=== PATIENT | female | born 1965 | race Caucasian/White ===

== ENCOUNTER 2022-09-11 09:53 | Outpatient (CLI) | payer MEDICARE, OTHER, SELFPAY ==
--- NOTE | 2022-09-11 10:15 | CRLHL7_ITS ---
For Patients: As a result of the Cures Act, medical imaging exams and procedure reports are released immediately into your electronic medical record. You may view this report before your referring provider. If you have questions, please contact your health care provider. BILATERAL SCREENING MAMMOGRAM WITH COMPUTER-AIDED DETECTION AND TOMOSYNTHESIS TECHNIQUE: CC and MLO views were obtained. These mammographic images have been obtained using full-field digital technique. These mammographic images were interpreted with the benefit of computer-aided detection. Breast Tomosynthesis was used in this interpretation. COMPARISON FILM: 03/31/21, 03/29/20, 10/28/18. FINDINGS: There are scattered areas of fibroglandular density IMPRESSION: There is no radiographic evidence for malignancy. ASSESSMENT: BI-RADS Category 1: Negative RECOMMENDATION: Routine screening mammogram in 1 year. A lay language report of this examination will be provided to the patient. Mc Vann M.D. Diagnostic Radiologist [email or web address] JOLLY/isiah / be/Dictated by: Mc Vann MD @ 09/11/2022 11:00:00 AM (Electronically Signed)
== END 2022-09-11 09:54 | disposition home or self-care (01) ==
LOC: MAMMO 10:01
PROVIDERS: PCP Family Medicine; Visit Provider Family Medicine
DX: Z12.31 Encounter for screening mammogram for malignant neoplasm of breast (principal)
CPT/HCPCS: 77063; 77067

== ENCOUNTER 2022-12-18 15:59 | Outpatient (CLI) | payer MEDICARE, SELFPAY ==
[2022-12-18 21:50] LABS: Creatinine Urine 22.1 mg/dL
[2022-12-18 21:54] LABS: Microalbumin Creatinine Ratio 130 mg/g (0-30); Microalbumin Urine 3 mg/dL
== END 2022-12-18 16:00 | disposition home or self-care (01) ==
PROVIDERS: PCP Family Medicine; Visit Provider Family Medicine
DX: E11.40 Type 2 diabetes mellitus with diabetic neuropathy, unspecified (principal); D64.9 Anemia, unspecified; N28.9 Disorder of kidney and ureter, unspecified
CPT/HCPCS: 82043; 82570

== ENCOUNTER 2023-06-24 13:40 | Outpatient (CLI) | payer OTHER, MEDICARE, SELFPAY | END 2023-06-24 13:41 | disposition home or self-care (01) | LOC: NFLDREF 07-02 10:56 | PROVIDERS: PCP Family Medicine; Referring Provider Family Medicine; Visit Provider Family Medicine | DX: N39.0 Urinary tract infection, site not specified (principal); R29.6 Repeated falls; D64.9 Anemia, unspecified; R42 Dizziness and giddiness; N28.9 Disorder of kidney and ureter, unspecified; G43.909 Migraine, unspecified, not intractable, without status migrainosus; G50.0 Trigeminal neuralgia; R06.02 Shortness of breath | CPT/HCPCS: 87086; 87186 ==

== ENCOUNTER 2023-09-12 10:00 | Outpatient (CLI) | payer OTHER, MEDICARE, SELFPAY | END 2023-09-12 10:01 | disposition home or self-care (01) | LOC: NFLDREF 09-18 07:09 | PROVIDERS: PCP Family Medicine; Referring Provider Family Medicine; Visit Provider Family Medicine | DX: Z00.00 Encounter for general adult medical examination without abnormal findings (principal); E11.9 Type 2 diabetes mellitus without complications; N39.0 Urinary tract infection, site not specified; R42 Dizziness and giddiness; N28.9 Disorder of kidney and ureter, unspecified; F41.8 Other specified anxiety disorders; Z79.899 Other long term (current) drug therapy; R80.9 Proteinuria, unspecified; M79.7 Fibromyalgia; M25.50 Pain in unspecified joint; M85.80 Other specified disorders of bone density and structure, unspecified site; E11.40 Type 2 diabetes mellitus with diabetic neuropathy, unspecified; K21.9 Gastro-esophageal reflux disease without esophagitis | CPT/HCPCS: 82043; 82570; 85651 ==

== ENCOUNTER 2023-10-04 14:49 | Outpatient (CLI) | payer OTHER, MEDICARE, SELFPAY ==
--- NOTE | 2023-10-04 15:00 | CRLHL7_ITS ---
For Patients: As a result of the Century Cures Act, medical imaging exams and procedure reports are released immediately into your electronic medical record. You may view this report before your referring provider. If you have questions, please contact your health care provider. BILATERAL SCREENING MAMMOGRAM WITH COMPUTER-AIDED DETECTION AND TOMOSYNTHESIS TECHNIQUE: CC and MLO views were obtained. These mammographic images have been obtained using full-field digital technique. These mammographic images were interpreted with the benefit of computer-aided detection. Breast Tomosynthesis was used in this interpretation. COMPARISON FILM: 09/11/22, 03/31/21, 03/29/20. FINDINGS: There are scattered areas of fibroglandular density IMPRESSION: There is no radiographic evidence for malignancy. ASSESSMENT: BI-RADS Category 2: Benign RECOMMENDATION: Routine screening mammogram in 1 year. A lay language report of this examination will be provided to the patient. Howard Goyal M.D. Diagnostic/Nuclear Medicine Radiologist [email or web address] JAZMYNE/Dictated by: Howard Goyal MD @ 10/07/2023 8:27:00 AM (Electronically Signed)
== END 2023-10-04 14:50 | disposition home or self-care (01) ==
LOC: MAMMO 14:50
PROVIDERS: PCP Family Medicine; Visit Provider Family Medicine
DX: Z12.31 Encounter for screening mammogram for malignant neoplasm of breast (principal)
CPT/HCPCS: 77063; 77067

== ENCOUNTER 2023-10-24 14:51 | Outpatient (CLI) | payer OTHER, MEDICARE, SELFPAY ==
--- NOTE | 2023-10-24 15:00 | CRLHL7_ITS ---
For Patients: As a result of the Century Cures Act, medical imaging exams and procedure reports are released immediately into your electronic medical record. You may view this report before your referring provider. If you have questions, please contact your health care provider. DXA BONE MINERAL DENSITY STUDY Reason for exam: Osteopenia. Current height (in): 68. Weight (lb): 170 Menopause age: 34. Ethnicity: White. 1. Have you had a previous hip or vertebral fracture? No. 2. Have you had any fractures during your adult life which did not result from significant trauma (e.g., auto accident)? Yes. 3. Did either of your parents have a hip fracture? No. 4. Do you smoke? No. 5. Have you ever taken Glucocorticoids? No. 6. Do you have rheumatoid arthritis? No. 7. Do you have secondary osteoporosis? Yes. 8. Do you drink 3 or more alcoholic drinks per day? No. 9. Are you being treated for osteoporosis? No. 10. Have you ever taken any of the following medications: Actonel, Evista, Fosamax, Miacalcin, Reclast, Boniva, Forteo, HRT (i.e., estrogen/hormone therapy), Protelos, Prolia, Vitamin D, Calcium, other ??? please specify. ANSWER: No. 11. Do you have any of the following medical conditions: Anorexia or bulimia, asthma or emphysema, end stage renal disease, hyperparathyroidism, any seizure disorders, cancer, inflammatory bowel diseases, hysterectomy, other ??? please specify. ANSWER: Yes, asthma or emphysema, and hysterectomy. 12. What was your maximum height (inches)? 69. 13. Do you perform weight bearing exercise regularly? No. 14. Do you regularly consume dairy products? No. 15. Do you drink caffeinated beverages? Yes. If female: 16. At what age did your period start? 13. 17. Are you premenopausal? No. 18. How many full-term pregnancies have you had? 2. 19. Have you ever missed your period for more than 6 months in a row (not including or menopause)? No. TECHNIQUE: Bone mineral density study was performed using the [facility]. FINDINGS: The results of the study expressed as bone mineral density (BMD) are as follows: Lumbar spine L1 to L4: BMD: 0.805 g/cm2. T-score: -2.2. Z-score: -0.9 Neck Left: BMD: 0.612 g/cm2. T-score: -2.1. Z-score: -0.9 Right: BMD: 0.609 g/cm2. T-score: -2.2. Z-score: -0.9 Total Left: BMD: 0.718 g/cm2. T-score: -1.8. Z-score: -0.9 Right: BMD: 0.689 g/cm2. T-score: -2.1. Z-score: -1.2 IMPRESSION: Osteopenia. *Comparison exams done prior to 04/2020 were performed on different unit, [facility]. COMPARISON: Compared with scan of 01/05/2019, the bone mineral density has decreased by 10.3 percent at the spine and increased by 2.2 percent at the hip. FRAX 10-year Fracture Risk Major Osteoporotic Fracture: 17% Hip Fracture: 2.5% Reported Risk Factors: [place] () Neck BMD=0.609, BMI= 25.8, previous fracture, secondary osteoporosis Mc Vann M.D. Diagnostic Radiologist [email or web address] JOLLY/db ace/Dictated by: Mc Vann MD @ 10/25/2023 8:34:00 AM (Electronically Signed)
== END 2023-10-24 14:52 | disposition home or self-care (01) ==
LOC: RAD 14:53
PROVIDERS: PCP Family Medicine; Visit Provider Family Medicine
DX: M85.80 Other specified disorders of bone density and structure, unspecified site (principal); M85.89 Other specified disorders of bone density and structure, multiple sites; Z78.0 Asymptomatic menopausal state
CPT/HCPCS: 77080

== ENCOUNTER 2023-12-27 09:40 | Outpatient (CLI) | payer MEDICARE, SELFPAY | END 2023-12-27 09:41 | disposition home or self-care (01) | PROVIDERS: PCP Family Medicine; Visit Provider Family Medicine | DX: Z00.00 Encounter for general adult medical examination without abnormal findings (principal); E11.40 Type 2 diabetes mellitus with diabetic neuropathy, unspecified; E11.9 Type 2 diabetes mellitus without complications; D64.9 Anemia, unspecified; F41.9 Anxiety disorder, unspecified; G62.9 Polyneuropathy, unspecified; Z79.4 Long term (current) use of insulin | CPT/HCPCS: 82043; 82570; 84443 ==

== ENCOUNTER 2024-01-24 08:40 | Outpatient (CLI) | payer MEDICARE, SELFPAY | END 2024-01-24 08:41 | disposition home or self-care (01) | LOC: LKVREF 08:41 | PROVIDERS: PCP Family Medicine; Visit Provider Family Medicine | DX: R00.2 Palpitations (principal); R42 Dizziness and giddiness | CPT/HCPCS: 83735 ==

== ENCOUNTER 2024-03-27 08:13 | Outpatient (CLI) | payer MEDICARE, SELFPAY | END 2024-03-27 08:14 | disposition home or self-care (01) | PROVIDERS: PCP Family Medicine; Visit Provider Family Medicine | DX: E11.21 Type 2 diabetes mellitus with diabetic nephropathy (principal); D50.9 Iron deficiency anemia, unspecified; E03.9 Hypothyroidism, unspecified; E78.5 Hyperlipidemia, unspecified; N28.9 Disorder of kidney and ureter, unspecified; E11.9 Type 2 diabetes mellitus without complications | CPT/HCPCS: 80053; 80061; 82043; 82570 ==

== ENCOUNTER 2024-05-22 07:54 | Outpatient (CLI) | payer MEDICARE, SELFPAY | END 2024-05-22 07:55 | disposition home or self-care (01) | LOC: RAD 07:55 | PROVIDERS: PCP Family Medicine; Visit Provider Family Medicine | DX: R01.1 Cardiac murmur, unspecified (principal) | CPT/HCPCS: 93306 ==

== ENCOUNTER 2024-06-19 07:01 | Outpatient (CLI) | payer MEDICARE, SELFPAY ==
--- NOTE | 2024-06-19 07:15 | CRLHL7_ITS ---
For Patients: As a result of the 21st Century Cures Act, medical imaging exams and procedure reports are released immediately into your electronic medical record. You may view this report before your referring provider. If you have questions, please contact your health care provider. CLINICAL INDICATION: Right knee pain. COMPARISON STUDIES: 12/08/2018. TECHNICAL: Noncontrast MRI of the right knee. 1.5 jose MRI scanner. Axial, sagittal and coronal T1, PD, PD FS, stir and T2 FS images. FINDINGS: MEDIAL COMPARTMENT: Medial Meniscus: Intact. Articular Cartilage: Mild marginal osteophyte formation. Mild thinning of the articular cartilage (grade 2). LATERAL COMPARTMENT: Lateral Meniscus: Body and posterior horn of lateral meniscus are intact. Mild fraying of the anterior horn root region of the meniscus. Articular Cartilage: Mild thinning of the articular cartilage (grade 2). PATELLOFEMORAL COMPARTMENT: Articular Cartilage: Mild osteophyte formation. Small chronic ossicle along the superior margin of the patella correlating with that seen radiographically with a triangular morphology on sagittal T2 fat-sat image number 15 of series 8. There is full-thickness cartilage wear involving the patella with subchondral bone marrow edema (grade 4). Minor trochlear articular cartilage wear (grade 1). LIGAMENTS: Anterior Cruciate Ligament: Intact. Posterior Cruciate Ligament: Intact. MEDIAL COLLATERAL LIGAMENT AND POSTEROMEDIAL CORNER COMPLEX: Medial Collateral Ligament: Intact. Medial Head of the Gastrocnemius and Semimembranosus Tendons: Mild tendinosis of the medial head of the gastrocnemius at its femoral attachment. LATERAL COLLATERAL LIGAMENT COMPLEX AND POSTEROLATERAL CORNER COMPLEX: Fibular Collateral Ligament: Normal. Distal Biceps Femoris Tendon Complex: Normal. Iliotibial Band: Intact. Popliteus Tendon: Normal. Posterolateral Corner Capsule: Normal. EXTENSOR MECHANISM: Distal Quadriceps Tendon: Normal. Patellar Tendon: Normal. Medial Patellar Retinaculum and Medial Patellofemoral Ligament: No disruption. Lateral Patellar Retinaculum: Normal. Normal patellar alignment. No patella estella. Normal trochlear depth. Normal lateral trochlear inclination. JOINT SPACE AND CAPSULE: No effusion. There is some scarring within Hoffa`s fat pad which likely relates to prior arthroscopy. Triangular 4 x 3 x 11 mm ossified body along the superior margin of the patella correlating with that seen radiographically. BONES AND SOFT TISSUES: No fracture or avascular necrosis. Small popliteal cyst. No soft tissue mass. IMPRESSION: 1. Degenerative arthrosis of the right knee with tricompartmental articular cartilage wear. This includes full-thickness cartilage wear of the patella with small foci of subchondral bone marrow edema (grade 4). Mild cartilage wear within the medial and lateral compartments. 2. Fraying of the anterior horn root region of lateral meniscus. Lateral meniscus otherwise intact. 3. Medial meniscus intact. 4. No fracture, joint effusion or acute ligamentous abnormality. 5. Small popliteal cyst. 6. 4 x 3 x 11 mm ossified body along the superior margin of the patella correlating with that seen radiographically. Dictated by Vaibhav Celis MD @ 06/19/2024 11:52:21 AM (Electronically Signed)
== END 2024-06-19 07:02 | disposition home or self-care (01) ==
LOC: MRI 07:01
PROVIDERS: PCP Family Medicine; Visit Provider Family Medicine
DX: M25.561 Pain in right knee (principal); M17.11 Unilateral primary osteoarthritis, right knee; M71.21 Synovial cyst of popliteal space [Baker], right knee
CPT/HCPCS: 73721

== ENCOUNTER 2024-08-11 13:05 | Outpatient (CLI) | payer MEDICARE, SELFPAY | END 2024-08-11 13:06 | disposition home or self-care (01) | LOC: NFLDREF 08-12 08:51 | PROVIDERS: PCP Family Medicine; Referring Provider Family Medicine; Visit Provider Family Medicine | DX: R82.90 Unspecified abnormal findings in urine (principal); E11.21 Type 2 diabetes mellitus with diabetic nephropathy | CPT/HCPCS: 87086; 87186 ==

== ENCOUNTER 2024-10-20 13:31 | Outpatient (CLI) | payer MEDICARE, SELFPAY ==
--- NOTE | 2024-10-20 14:00 | CRLHL7_ITS ---
For Patients: As a result of the Century Cures Act, medical imaging exams and procedure reports are released immediately into your electronic medical record. You may view this report before your referring provider. If you have questions, please contact your health care provider. BILATERAL SCREENING MAMMOGRAM WITH COMPUTER-AIDED DETECTION AND TOMOSYNTHESIS TECHNIQUE: CC and MLO views were obtained. These mammographic images have been obtained using full-field digital technique. These mammographic images were interpreted with the benefit of computer-aided detection. Breast Tomosynthesis was used in this interpretation. COMPARISON FILM: 09/24/23, 09/11/22, 03/31/21. FINDINGS: There are scattered areas of fibroglandular density IMPRESSION: There is no radiographic evidence for malignancy. ASSESSMENT: BI-RADS Category 1: Negative RECOMMENDATION: Routine screening mammogram in 1 year. A lay language report of this examination will be provided to the patient. Mc Vann M.D. Diagnostic Radiologist [email or web address] JOLLY/fco: Transcribed: 9:02 am DW/Dictated by: Mc Vann MD @ 10/21/2024 12:42:00 PM (Electronically Signed)
== END 2024-10-20 13:32 | disposition home or self-care (01) ==
LOC: MAMMO 13:32
PROVIDERS: PCP Family Medicine; Visit Provider Family Medicine
DX: Z12.31 Encounter for screening mammogram for malignant neoplasm of breast (principal)
CPT/HCPCS: 77063; 77067

== ENCOUNTER 2024-10-30 08:40 | Outpatient (CLI) | payer MEDICARE, SELFPAY | END 2024-10-30 08:41 | disposition home or self-care (01) | LOC: LKVREF 08:41 | PROVIDERS: PCP Family Medicine; Visit Provider Family Medicine | DX: E03.9 Hypothyroidism, unspecified (principal) | CPT/HCPCS: 84443 ==